=== PATIENT | male | born 1980 | race Caucasian/White ===

== ENCOUNTER 2021-08-19 11:44 | Emergency (ER) | payer OTHER ==
[2021-08-19 14:28] LABS: BASOPHIL 0.5 % (0-2); EOSINOPHIL 1.1 % (0-5); HCT 40.8 % (42.0-52.0); HGB 13.8 g/dl (13.2-18.0); LYMPHOCYTE 32.4 % (15-48); MCH 30.1 pg (25.0-31.0); MCHC 33.8 g/dL (32.0-36.0); MCV 89.1 fL (78.0-100.0); MONOCYTE 9.9 % (0-12); NEUTROPHIL 55.9 % (41-80); NRBC 0; PLT 207 K/uL (150-400); RBC 4.58 M/uL (4.70-6.00); RDW 12.9 % (11.5-14.0); WBC 5.6 K/uL (4.0-10.5)
[2021-08-19 14:43] LABS: ALBUMIN 4.1 g/dL (3.4-5.0); BILIRUBIN - TOTAL 0.4 mg/dL (0.2-1.0); BUN/CREAT RATIO (CALC) 18.8 RATIO; CREATININE 0.85 mg/dL (0.67-1.17); GLOBULIN (CALCULATION) 3.6 g/dL; POTASSIUM 4.5 mmol/L (3.5-5.1); TOTAL PROTEIN 7.7 g/dL (6.4-8.2)
[2021-08-19 22:10] LABS: BILIRUBIN NEGATIVE (NEGATIVE); BLOOD NEGATIVE Ery/uL (NEGATIVE); CLARITY CLEAR (CLEAR); COLOR YELLOW (YELLOW); GLUCOSE (U) NORMAL (NORMAL); LEUKOCYTES NEGATIVE Leu/uL (NEGATIVE); NITRITE NEGATIVE (NEGATIVE); PROTEIN NEGATIVE (NEGATIVE); SPECIFIC GRAVITY 1.025 (1.001-1.030); UROBILINOGEN 0.2 mg/dL (0.2-1.0)
[2021-08-19] MEDS ORDERED: DOXYCYCLINE HY100 MG PO (23:52)
== END 2021-08-20 00:37 | disposition home or self-care (01) ==
LOC: FER 11:44
PROVIDERS: Internal Medicine
DX: N41.9 Inflammatory disease of prostate, unspecified (principal)
CPT/HCPCS: 36415; 76870; 80053; 81003; 85025; J1100; J1170; J2405; J7030; Q9967

== ENCOUNTER 2021-08-20 20:55 | Emergency (ER) | payer OTHER ==
[~2021-08-20 20:55] MED LIST: DOXYCYCLINE HY100 MG PO
[2021-08-20 22:11] LABS: BILIRUBIN NEGATIVE (NEGATIVE); BLOOD NEGATIVE Ery/uL (NEGATIVE); CLARITY CLEAR (CLEAR); COLOR YELLOW (YELLOW); GLUCOSE (U) NORMAL (NORMAL); LEUKOCYTES NEGATIVE Leu/uL (NEGATIVE); NITRITE NEGATIVE (NEGATIVE); PROTEIN NEGATIVE (NEGATIVE); SPECIFIC GRAVITY 1.025 (1.001-1.030); pH 6.5 (5.0-9.0)
== END 2021-08-20 23:10 | disposition home or self-care (01) ==
LOC: FER 20:55
PROVIDERS: Emergency Medicine
DX: N48.89 Other specified disorders of penis (principal)
CPT/HCPCS: 81003; 99283